=== PATIENT | male | born 1970 | race Caucasian/White ===

== ENCOUNTER → 2021-05-25 18:33 | Outpatient (BNVA) | payer OTHER, SELFPAY | PROVIDERS: Family Provider Nurse Practitioner; Visit Provider Nurse Practitioner | DX: Z20.822 Contact with and (suspected) exposure to COVID-19 (principal); U07.1 COVID-19 | CPT/HCPCS: 87426 ==

== ENCOUNTER 2021-05-26 10:45 | Outpatient (CLI) | payer OTHER, SELFPAY ==
[2021-05-26 11:01] VITALS: BP 127/93; PULSE 71; RESP 16; TEMP 36.6; O2SAT 98; BMI 25.0
[2021-05-26 11:30] VITALS: BP 123/81; PULSE 89; RESP 16; TEMP 36.8; O2SAT 96
[2021-05-26 12:25] VITALS: BP 128/88; PULSE 63; RESP 16; TEMP 36.8; O2SAT 95
== END 2021-05-26 12:37 | disposition home or self-care (01) ==
LOC: OPS 10:46
PROVIDERS: PCP Nurse Practitioner; Visit Provider Nurse Practitioner
DX: U07.1 COVID-19 (principal)
CPT/HCPCS: 96365

== ENCOUNTER → 2021-10-31 08:42 | Outpatient (BNVA) | payer SELFPAY | PROVIDERS: PCP Nurse Practitioner; Referring Provider Nurse Practitioner; Visit Provider Dermatology | DX: Z01.89 Encounter for other specified special examinations (principal) ==

== ENCOUNTER 2022-02-28 08:14 | Outpatient (CLI) | payer OTHER, SELFPAY ==
--- NOTE | 2022-02-28 08:00 | USCV_ITS ---
Cosme Keith Age: 51 Gender: M : 1970 Exam Date: 02/28/2022 08:32 Ordering Phys: Michael Keith Technologist: Ashley Sterling Exam Location: [facility] Indication: CP, SOB BP: 107 / 68 HR: 63 Rhythm: Sinus Technical Quality: Adequate MEASUREMENTS (Male / Female) Normal Values 2D ECHO LV Diastolic Diameter PLAX 4.5 cm 4.2 - 5.9 / 3.9 - 5.3 cm LV Systolic Diameter PLAX 1.6 cm IVS Diastolic Thickness 1.2 cm 0.6 - 1.0 / 0.6 - 0.9 cm IVS Systolic Thickness 2.6 cm LVPW Diastolic Thickness 1.3 cm 0.6 - 1.0 / 0.6 - 0.9 cm LVPW Systolic Thickness 2.2 cm LVOT Diameter 2.2 cm LV Ejection Fraction 2D Teich 92.1 % LV Ejection Fraction MOD 2C 62.9 % LV Ejection Fraction 2C AL 63.6 % LA Diameter 2.9 cm LA Width 3.0 cm LA Height 4.1 cm RA Width 3.5 cm RA Height 5.1 cm Aorta at Sinotubular Diameter 3.5 cm IVC Diameter 1.8 cm DOPPLER MV Peak Velocity 73.0 cm/s MV Area PHT 4.9 cm squared Mitral E to A Ratio 0.9 MV E' Velocity 37.5 cm/s Mitral E to LV E' Lateral Ratio 7.3 TR Peak Velocity 65.0 cm/s TR Peak Gradient 1.7 mmHg Right Atrial Pressure 3.0 mmHg Pulmonary Artery Systolic Pressu 4.7 mmHg PV Peak Velocity 82.3 cm/s RV Acceleration Time 0.1 s FINDINGS Left Ventricle Normal left ventricular size and systolic function, EF 63 %. No regional wall motion abnormalities. Right Ventricle The right ventricle is normal in size and function. Right Atrium The right atrium is normal in size. Left Atrium The left atrium is normal in size. Mitral Valve No gross abnormalities noted Aortic Valve No gross abnormalities noted Tricuspid Valve No gross abnormalities noted Pulmonic Valve No gross abnormalities noted Pericardium Normal pericardium without effusion. Aorta Mildly dilated aortic root -measuring 4.0 cm at the level of the sinuses IVC The inferior vena cava pulmonary and hepatic veins appear normal. CONCLUSIONS Normal left ventricular size and systolic function, EF 63 %. No regional wall motion abnormalities. Mildly dilated aortic root -measuring 4.0 cm at the level of the sinuses. There is no pericardial effusion. There are no intracardiac masses. No similar previous studies are available for comparison Dr Stuart Eugene MD [facility] (Electronically Signed) Final Date: 28 February 2022 23:03 S
== END 2022-02-28 08:15 | disposition home or self-care (01) ==
PROVIDERS: PCP Nurse Practitioner; Visit Provider Nurse Practitioner
DX: R06.00 Dyspnea, unspecified (principal)
CPT/HCPCS: 93306

== ENCOUNTER 2022-06-20 08:41 | Outpatient (CLI) | payer OTHER, SELFPAY ==
--- NOTE | 2022-06-20 09:00 | CT_ITS ---
WS: [id number] CTA THORACIC TECHNIQUE: Contrast enhanced CTA of the thoracic aorta with coronal and sagittal reformatted images a nd maximum intensity projection (MIP) images. CLINICAL INFORMATION: Aortic root dilatation COMPARISON: None. DLP: 1072.[address] scans at [facility] use at least one of these dose optimization techniques: automated e xposure control; mA and/or kV adjustment per patient size (includes targeted exams where dose is matc hed to clinical indication); or iterative reconstruction. FINDINGS: Normal caliber ascending thoracic aorta. Normal aortic arch. Normal descending thoracic aorta. Proxim al main pulmonary arteries are normal. Ascending thoracic aorta measures 3.1 cm in maximum dimension. Aortic root measures 4.0 cm in maximum dimension No mediastinal or hilar lymphadenopathy. No axillary lymphadenopathy. Normal thyroid gland. Adrenal glands are normal. Prior cholecystectomy. Calcified granuloma RIGHT upper lobe. No acute pulm onary infiltrates. No suspicious pulmonary parenchymal opacities. No focal pneumonia or pleural fluid . Slight bibasilar atelectasis. CT/CT angio chest [id number] IMPRESSION: 1. Aortic root dilatation measuring 4.0 cm in maximum dimension. Normal calibe r ascending thoracic and descending thoracic aorta. 2. No acute pulmonary infiltrates. No focal pneumonia or pleural fluid. 3. No other suspicious findings.
[2022-06-20] MEDS: iohexol 350 mg/mL 100 mL Btl IV (09:39)
== END 2022-06-20 08:42 | disposition home or self-care (01) ==
LOC: RAD 08:42
PROVIDERS: PCP Nurse Practitioner; Visit Provider Thoracic Surgery (Cardiothoracic Vascular Surgery)
DX: I77.810 Thoracic aortic ectasia (principal)
CPT/HCPCS: 71275

== ENCOUNTER → 2022-10-30 08:36 | Outpatient (BNVA) | payer SELFPAY | PROVIDERS: PCP Nurse Practitioner; Visit Provider Nurse Practitioner | DX: Z01.89 Encounter for other specified special examinations (principal); Z13.6 Encounter for screening for cardiovascular disorders | CPT/HCPCS: 81000 ==

== ENCOUNTER 2023-04-12 07:12 | Outpatient (CLI) | payer OTHER, SELFPAY ==
--- NOTE | 2023-04-12 07:15 | USCV_ITS ---
oCsme Keith Age: 52 Gender: M : 1970 Exam Date: 04/12/2023 07:41 Ordering Phys: Joseluis Cruz MD (Andy) ([email or web address]) Technologist: Exam Location: [facility] [place], [place] Indication: ? ao root dialation BP: 120 / 80 HR: 75 Rhythm: Sinus Technical Quality: Adequate MEASUREMENTS (Male / Female) Normal Values 2D ECHO LV Diastolic Diameter PLAX 4.3 cm 4.2 - 5.9 / 3.9 - 5.3 cm LV Systolic Diameter PLAX 2.4 cm IVS Diastolic Thickness 1.1 cm 0.6 - 1.0 / 0.6 - 0.9 cm IVS Systolic Thickness 1.4 cm LVPW Diastolic Thickness 1.1 cm 0.6 - 1.0 / 0.6 - 0.9 cm LVPW Systolic Thickness 1.6 cm LVOT Diameter 2.1 cm LV Ejection Fraction 2D Teich 76.4 % LV Ejection Fraction MOD 2C 49.3 % LV Ejection Fraction 2C AL 49.9 % LA Diameter 3.7 cm Aorta at Sinotubular Diameter 2.8 cm M-MODE Aortic Annulus Diameter 3.5 cm LA Ao Ratio MM 1.2 MV E Point Septal Separation 0.6 cm DOPPLER AV Peak Velocity 104.0 cm/s LVOT Peak Velocity 68.0 cm/s AV Area Cont Eq vti 2.8 cm squared AV Area Cont Eq pk 2.2 cm squared MV Area PHT 2.5 cm squared Mitral E to A Ratio 0.8 MV E' Velocity 31.0 cm/s Mitral E to MV E' Ratio 5.5 Mitral E to LV E' Lateral Ratio 4.8 Mitral E to LV E' Septal Ratio 6.6 TR Peak Velocity 185.7 cm/s TR Peak Gradient 13.8 mmHg TV Peak E Velocity 72.0 cm/s Right Atrial Pressure 3.0 mmHg Pulmonary Artery Systolic Pressu 16.8 mmHg RV Acceleration Time 0.1 s FINDINGS Left Ventricle Left ventricle is normal in size. LV systolic function is normal with EF 55 to 60%. No regional wall motion abnormalities are seen. Grade 1 diastolic dysfunction Right Ventricle Normal in size and function Right Atrium Normal in size Left Atrium Normal in size Mitral Valve Structurally normal mitral valve. No significant stenosis or regurgitation Aortic Valve Structurally normal aortic valve. No significant stenosis or regurgitation Tricuspid Valve Mild tricuspid regurgitation. Pulmonary artery systolic pressure is normal. Pulmonic Valve Not well visualized Pericardium Normal Aorta Mildly dilated with ascending aortic dilation with diameter of 3.66cm IVC Appears to be normal CONCLUSIONS LV systolic function is normal with EF of 55-60% Grade 1 diastolic dysfunction Mild tricuspid regurgitation Mildly dilated with ascending aortic dilation with diameter of 3.66cm Compared to prior echocardiogram from 2021,no significant changes are seen Abiodun Murphy MD (Electronically Signed) Final Date: 12 April 2023 13:40 S
== END 2023-04-12 07:13 | disposition home or self-care (01) ==
LOC: RAD 07:14
PROVIDERS: PCP Nurse Practitioner; Visit Provider Thoracic Surgery (Cardiothoracic Vascular Surgery)
DX: I77.810 Thoracic aortic ectasia (principal); I07.1 Rheumatic tricuspid insufficiency
CPT/HCPCS: 93306

== ENCOUNTER 2024-06-17 07:23 | Outpatient (CLI) | payer OTHER, SELFPAY ==
[2024-06-17 08:35] LABS: Alanine Aminotransferase 47 U/L (0-41); Albumin Level 4.2 g/dL (3.5-5.2); Alkaline Phosphatase 79 U/L (40-130); Aspartate Amino Transferase 28 U/L (0-40); Blood Urea Nitrogen 11 mg/dL (6-20); Calcium 8.7 mg/dL (8.5-10.5); Carbon Dioxide 29 mmol/L (22-29); Chloride 106 mmol/L (98-107); Chol HDL Ratio 2.98 mg/dL (1.0-5.00); Cholesterol 131 mg/dL (0-200); Globulin 2.6 g/dL (1.3-4.6); Glomerular Filtration Rate 88.6 mL/min (90-130); Glucose 109 mg/dL (65-115); HDL Cholesterol 44 mg/dL (60-100); LDL Cholesterol Calculated 77 mg/dL (50-129); Osmolality Calculated 296 mOsm/kg (285-295); Prostate Specific Antigen Scr 0.63 ng/mL (0-4); Sodium 143 mmol/L (136-145); Total Bilirubin 0.4 mg/dL (0.15-1.2); Total Protein 6.8 g/dL (6.6-8.7); Triglycerides 52 mg/dL (0-150); VLDL Cholestrol Calculation 10 mg/dL (0-30)
[2024-06-17 08:37] LABS: Anion Gap 12.9 (5-19); Potassium 4.9 mmol/L (3.5-5.1)
[2024-06-17 10:38] LABS: 25 Hydroxy Vitamin D 21 ng/mL (30-100)
== END 2024-06-17 07:24 | disposition home or self-care (01) ==
LOC: LAB 07:24
PROVIDERS: PCP Nurse Practitioner; Visit Provider Nurse Practitioner
DX: I10 Essential (primary) hypertension (principal); E55.9 Vitamin D deficiency, unspecified; Z12.5 Encounter for screening for malignant neoplasm of prostate
CPT/HCPCS: 36415; 80053; 80061; 82306; G0103

== ENCOUNTER 2024-10-01 12:32 | Outpatient (CLI) | payer OTHER, SELFPAY ==
--- NOTE | 2024-10-01 12:30 | CT_ITS ---
WS: [id number] CT chest wo con [id number] HISTORY: R06.00 - Dyspnea, unspecified TECHNIQUE: Axial imaging performed through the thorax. Coronal and sagittal reformats are submitted. All CT scans at [facility] use at least one of these dose optimization techniques: automated exposure control; mA and/or kV adjustment per patient size (includes targeted exams where dose is matched to clinical indication); or iterative reconstruction. CONTRAST: None DLP: 532.65 mGy.cm COMPARISON: 06/20/2022 Lungs and central airway: There are a few scattered pulmonary granulomata. No pulmonary mass or nodule. No pneumonia. Pleura: Normal. No pleural effusion. Heart and pericardium: Normal size heart with no pericardial effusion. Mediastinum and abdelrahman: No mediastinum or hilar adenopathy. RIGHT paratracheal calcified lymph nodes. Vessels: Minimal atherosclerosis aorta. Slightly ectatic ascending aorta but not aneurysmal. Normal size pulmonary artery. Chest wall and lower neck: No soft tissue masses. Upper abdomen: Variable density throughout the liver. Geographic patterns of decreased increased attenuation. I favor this is probably hepatic steatosis. Similar findings are probably also present on the study from 2021 with progression. Prior cholecystectomy. No adrenal mass. Splenic granulomata. Osseous structures: Mild thoracic spondylosis. CT/CT chest wo con [id number] IMPRESSION: 1. No pulmonary mass or nodule. No pneumonia. 2. Minimally ectatic ascending thoracic aorta. No progression since 2021. 3. No mediastinal or hilar adenopathy. 4. Geographic variable heterogeneity throughout the liver. Favor this is proba latisha hepatic steatosis with areas of sparing. Similar findings but to a lesser e xtent noted in 2021. Recommend follow-up ultrasound evaluation to exclude hepat ic mass and confirm hepatic steatosis. 5. Prior cholecystectomy.
== END 2024-10-01 12:33 | disposition home or self-care (01) ==
PROVIDERS: PCP Nurse Practitioner; Visit Provider Nurse Practitioner
DX: R06.00 Dyspnea, unspecified (principal); I77.810 Thoracic aortic ectasia; R93.2 Abnormal findings on diagnostic imaging of liver and biliary tract; Z90.49 Acquired absence of other specified parts of digestive tract; J84.10 Pulmonary fibrosis, unspecified; I89.8 Other specified noninfective disorders of lymphatic vessels and lymph nodes; D73.89 Other diseases of spleen; M47.894 Other spondylosis, thoracic region
CPT/HCPCS: 71250

== ENCOUNTER 2025-01-19 06:57 | Outpatient (CLI) | payer OTHER, SELFPAY ==
--- NOTE | 2025-01-19 07:00 | US_ITS ---
WS: [id number] RIGHT UPPER QUADRANT ULTRASOUND HISTORY: K76.0 - Fatty (change of) liver, not elsewhere classified COMPARISON: 10/22/2016 Liver: 16.1 cm in length. Normal size liver and echogenicity. No bile duct dilatation or mass. Portal Vein: Normal hepatopetal flow with monophasic waveform. Gallbladder: Cholecystectomy. CBD: 0.3 cm Pancreas: Partially visualized. Tail is excluded. Right kidney: 10.4 cm in length. Normal size and echogenicity. No hydronephrosis or mass. Aorta and IVC: Unremarkable abdominal aorta and IVC. No ascites. US/US liver [id number] IMPRESSION: 1. Prior cholecystectomy. 2. No intrahepatic duct dilatation. 3. Negative liver.
== END 2025-01-19 06:58 | disposition home or self-care (01) ==
PROVIDERS: PCP Nurse Practitioner; Visit Provider Nurse Practitioner
DX: K76.0 Fatty (change of) liver, not elsewhere classified (principal); Z90.49 Acquired absence of other specified parts of digestive tract
CPT/HCPCS: 76705

== ENCOUNTER 2025-01-28 09:24 | Outpatient (CLI) | payer SELFPAY ==
[2025-01-28 10:02] LABS: Basophils % 0.4 %; Eosinophils # 0.1 10^3/uL (0.0-0.8); HF Add Manual Diff No; Hematocrit 46.2 % (37-53); Lymphocytes # 2.1 10^3/uL (0.8-4.8); Lymphocytes % 26.3 %; Mean Corpuscular HGB Conc 33.1 g/dL (30-55); Mean Corpuscular Hemoglobin 29.8 pg (27-33); Mean Corpuscular Volume 89.9 fl (82-101); Mean Platelet Volume 9.9 fL (7.4-10.4); Monocytes # 0.4 10^3/uL (0.2-0.9); Monocytes % 5.4 %; Neutrophils # 5.18 10^3/uL (1.8-7.7); Neutrophils % 66.6 %; Nucleated Red Blood Cells % 0 %; Platelet Count 278 10^3/cmm (157-399); Red Blood Count 5.14 10^6/uL (3.85-5.65); Red Cell Distribution Width 13.1 % (12.1-15.1); White Blood Count 7.78 10^3/uL (3.29-11.43)
[2025-01-28 10:30] LABS: Estmated Average Glucose 97
[2025-01-28 10:51] LABS: 25 Hydroxy Vitamin D 60 ng/mL (30-100); Alanine Aminotransferase 17 U/L (0-41); Albumin Level 4.6 g/dL (3.5-5.2); Alkaline Phosphatase 66 U/L (40-130); Anion Gap 16.3 (5-19); Aspartate Amino Transferase 15 U/L (0-40); Blood Urea Nitrogen 12 mg/dL (6-20); Calcium 9.4 mg/dL (8.5-10.5); Carbon Dioxide 27 mmol/L (22-29); Chloride 104 mmol/L (98-107); Chol HDL Ratio 2.23 mg/dL (1.0-5.00); Cholesterol 125 mg/dL (0-200); Globulin 2.5 g/dL (1.3-4.6); Glomerular Filtration Rate 88.6 mL/min (90-130); Glucose 76 mg/dL (65-115); HDL Cholesterol 56 mg/dL (60-100); LDL Cholesterol Calculated 60 mg/dL (50-129); LDL HDL Ratio 1.07 RATIO (0.00-3.22); Osmolality Calculated 295 mOsm/kg (285-295); Potassium 4.3 mmol/L (3.5-5.1); Prostate Specific Antigen Scr 1.16 ng/mL (0-4); Sodium 143 mmol/L (136-145); Total Bilirubin 0.7 mg/dL (0.15-1.2); Total Protein 7.1 g/dL (6.6-8.7); Triglycerides 45 mg/dL (0-150)
== END 2025-01-28 09:25 | disposition home or self-care (01) ==
PROVIDERS: PCP Nurse Practitioner; Visit Provider Dermatology
DX: Z01.89 Encounter for other specified special examinations (principal)